=== PATIENT | female | born 1960 | race Asian ===

== ENCOUNTER 2024-01-24 20:56 | Emergency (ER) | payer MEDICAID ==
[~2024-01-24] VITALS: Ht 152.4 cm; Wt 57.7 kg
[2024-01-24 21:10] VITALS: TEMP 98.2
[2024-01-24] MEDS ORDERED: PROP20TA18 PO (21:17)
[2024-01-24] MEDS ORDERED: METF-1211 PO (21:17)
[2024-01-24] MEDS ORDERED: ATOR40TA28 PO (21:17)
[2024-01-24] MEDS ORDERED: CAPT25TA3 PO (21:17)
[2024-01-24 23:07] LABS: ANION GAP 10 mmol/L (8-16); CALCIUM, TOTAL 9.1 mg/dL (8.8-10.5); CARBON DIOXIDE 27 mmol/L (22-29); CHLORIDE 101 mmol/L (98-107); CREATININE 0.69 mg/dL (0.60-1.30); GLOMERULAR FILTR. RATE CALC > 60 mL/min (>60); GLUCOSE,RANDOM 134 mg/dL (70-110); POTASSIUM 3.2 mmol/L (3.5-5.1); SODIUM SERUM 138 mmol/L (136-145); UREA NITROGEN, BLOOD 13 mg/dL (7-18)
[2024-01-24 23:16] LABS: TROPONIN I-HIGH SENSITIVITY 8 ng/L (<51)
[2024-01-24 23:18] LABS: BASOPHILS % (AUTO) 0.5 % (0.0-2.0); EOSINOPHILS % (AUTO) 1.4 % (1.0-6.0); HEMATOCRIT 38.8 % (36-46); HEMOGLOBIN 12.9 g/dL (12.0-16.0); LYMPHOCYTES # (AUTO) 2.1 K/uL (1.0-4.8); LYMPHOCYTES % (AUTO) 19.3 % (22.0-44.0); MEAN CORPUSCULAR HEMOGLOBIN 32.2 pg (26.0-34.0); MEAN CORPUSCULAR HGB CONC 33.4 G/dL (31.0-37.0); MEAN CORPUSCULAR VOLUME 97 fL (80-100); MONOCYTES # (AUTO) 0.5 K/uL (0.1-1.0); MONOCYTES % (AUTO) 4.5 % (2.0-9.0); NEUTROPHILS # (AUTO) 7.9 K/uL (1.8-7.7); NEUTROPHILS % (AUTO) 74.3 % (40.0-70.0); PLATELET COUNT (AUTO) 281 K/uL (150-450); RED BLOOD CELL COUNT(AUTO) 4.02 MIL/uL (4.00-5.20); RED CELL DISTRIBUTION WIDTH 13.3 % (11.5-14.5); WHITE BLOOD COUNT (AUTO) 10.6 K/uL (4.5-11.0)
[2024-01-24 23:32] VITALS: BP 110/69; PULSE 69; RESP 20; O2SAT 96
[2024-01-24] MEDS: POTASSIUM CHLORIDE 20 MEQ ER TABLET PO ONE (23:59)
[2024-01-25 08:20] LABS: GLUCOMETER DEV NAME(LOC) ERT.6; GLUCOSE,POINT OF CARE 123 MG/DL (70-110)
== END 2024-01-25 00:52 | disposition home or self-care (01) ==
LOC: EMS 20:56
DX: I10 Essential (primary) hypertension (principal); R42 Dizziness and giddiness; R53.83 Other fatigue; E87.6 Hypokalemia; E11.9 Type 2 diabetes mellitus without complications; E78.00 Pure hypercholesterolemia, unspecified; Z79.84 Long term (current) use of oral hypoglycemic drugs; Z79.899 Other long term (current) drug therapy
CPT/HCPCS: 80048; 82962; 84484; 85025; 93005; 99284

== ENCOUNTER 2024-11-25 15:51 | Emergency (ER) | payer MEDICAID ==
[~2024-11-25] VITALS: Ht 149.9 cm; Wt 59.5 kg
[~2024-11-25 15:51] MED LIST: ATOR40TA28 PO; CAPT25TA PO; METF-1211 PO; PROP20TA18 PO
[2024-11-25 16:06] VITALS: BP 129/71; PULSE 67; RESP 18; TEMP 97.2; O2SAT 99
[2024-11-25 16:27] LABS: PLATELET COUNT (AUTO) 304 K/uL (150-450); RED BLOOD CELL COUNT(AUTO) 4.19 MIL/uL (4.00-5.20); RED CELL DISTRIBUTION WIDTH 13.2 % (11.5-14.5); WHITE BLOOD COUNT (AUTO) 6.9 K/uL (4.5-11.0)
[2024-11-25 16:31] LABS: GLUCOMETER DEV NAME(LOC) ER.7; GLUCOSE,POINT OF CARE 103 MG/DL (70-110)
[2024-11-25 16:36] LABS: CALCIUM, TOTAL 8.8 mg/dL (8.8-10.5); CREATININE 0.71 mg/dL (0.60-1.30); GLOMERULAR FILTR. RATE CALC > 60 mL/min (>60); GLUCOSE,RANDOM 105 mg/dL (70-110); SODIUM SERUM 139 mmol/L (136-145); UREA NITROGEN, BLOOD 11 mg/dL (7-18)
[2024-11-25 16:45] LABS: TROPONIN I-HIGH SENSITIVITY 4 ng/L (<51)
== END 2024-11-25 19:55 | disposition home or self-care (01) ==
LOC: EMS 15:51
DX: R06.02 Shortness of breath (principal); E11.9 Type 2 diabetes mellitus without complications; E78.00 Pure hypercholesterolemia, unspecified; I10 Essential (primary) hypertension; Z79.899 Other long term (current) drug therapy
CPT/HCPCS: 71045; 80048; 82962; 83880; 84484; 85025; 93005; 99285; 36415-L1; 36415-TC